=== PATIENT | male | born 1980 | race Caucasian/White ===

== ENCOUNTER 2016-08-31 12:09 | Emergency (ER) | payer MEDICAID ==
[2016-08-31 12:15] VITALS: BMI 33.7
[2016-08-31 12:16] VITALS: BP 138/75; PULSE 68; RESP 19; TEMP 98.1; O2SAT 99
--- NOTE | 2016-08-31 14:11 | ED PDOC ---
HPI: Male Pain Time Seen by Provider: 08/31/16 12:33 Chief Complaint (Nursing): Male Genitourinary Chief Complaint (Provider): dysuria History Per: Patient Additional Complaint(s): pt c/o dysuria, penile drainage x 2 days w/ associated chills. no fever, cp, sob, abd pain, n/v, testicle pain, groin lesions. pt is sexually active with one female partner, no protection used. Past Medical History Reviewed: Historical Data, Nursing Documentation, Vital Signs Vital Signs: Last Vital Signs Temp 98.1 F 08/31/16 12:29 Pulse 68 08/31/16 12:29 Resp 19 08/31/16 12:29 BP 138/75 08/31/16 12:29 Pulse Ox 99 08/31/16 12:29 - Medical History PMH: Back Problems Denies: Chronic Kidney Disease - Surgical History Surgical History: Tonsillectomy - Family History Family History: States: No Known Family Hx - Social History Current smoker - smoking cessation education provided: No Alcohol: None Drugs: Denies - Immunization History Hx Tetanus Toxoid Vaccination: No Hx Influenza Vaccination: No Hx Pneumococcal Vaccination: No - Home Medications Home Medications: Ambulatory Orders Medication Instructions Recorded Acetaminophen/Oxycodone Hydr 1 tab PO Q6H PRN #15 tab 01/27/14 [Percocet 325 mg-5 mg] Ibuprofen [Motrin Tab] 600 mg PO Q8H PRN #20 tab 01/27/14 Ciprofloxacin/Ciprofloxa HCl 500 mg PO BID #20 ter 07/17/14 [Ciprofloxacin] Ketorolac Tromethamine [Toradol] 10 mg PO Q6 PRN #19 tab 11/30/14 diaZEpam [Valium] 5 mg PO Q6H #10 tab 11/30/14 Ciprofloxacin [Cipro] 1 tab PO BID #6 tab 09/04/15 Doxycycline Hyclate 100 mg PO Q12 #14 tab 08/31/16 - Allergies Allergies/Adverse Reactions: Allergies Allergy/AdvReac Type Severity Reaction Status Date / Time Penicillins Allergy RASH Verified 09/04/15 01:30 Review of Systems ROS Statement: Except As Marked, All Systems Reviewed And Found Negative Genitourinary Male: Positive for: Dysuria Physical Exam - Reviewed Nursing Documentation Reviewed: Yes Vital Signs Reviewed: Yes - Physical Exam Appears: Positive for: Well, Non-toxic, No Acute Distress Skin: Positive for: Normal Color, Warm, DRY Cardiovascular/Chest: Positive for: Regular Rate, Rhythm Respiratory: Positive for: CNT, Normal Breath Sounds Gastrointestinal/Abdominal: Positive for: Normal Exam, Bowel Sounds, Soft. Negative for: Tenderness Male Genital Exam: Positive for: normal genitalia (uncircumcised). Negative for : inguinal tenderness, lesions, scrotum tenderness (R), scrotum tenderness (L), testicular tenderness (R), testicular tenderness (L), urethral discharge Neurologic/Psych: Positive for: Alert, Oriented - ECG O2 Sat by Pulse Oximetry: 99 Disposition - Clinical Impression Clinical Impression: Urinary tract infection - Patient ED Disposition Is Patient to be Admitted: No - Disposition Referrals: [facility] [Outside] Disposition: Routine/Home Disposition Time: 14:13 Condition: GOOD Prescriptions: Doxycycline Hyclate 100 mg PO Q12 #14 tab Instructions: Urinary Tract Infection in Men (ED)
== END 2016-08-31 14:21 | disposition home or self-care (01) ==
LOC: H.ER 12:09
DX: N39.0 Urinary tract infection, site not specified (principal); R30.0 Dysuria

== ENCOUNTER 2017-07-20 11:59 | Emergency (ER) | payer MEDICAID ==
[2017-07-20 12:11] VITALS: BP 137/90; PULSE 75; TEMP 97; O2SAT 98; BMI 34.9
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
== END 2017-07-20 13:13 | disposition home or self-care (01) ==
LOC: H.ER 11:59
DX: M54.5 Low back pain (principal); Z88.0 Allergy status to penicillin
CPT/HCPCS: 96372; 99282; J1885

== ENCOUNTER 2018-08-25 17:44 | Emergency (ER) | payer MEDICAID ==
[2018-08-25 17:44] VITALS: BMI 34.9
[2018-08-25 18:15] VITALS: BP 129/74; PULSE 91; RESP 18; TEMP 98.7; O2SAT 96
[2018-08-25] MEDS ORDERED: DiphenhydrAMINE 50 mg/ml Inj IM STA (19:06)
--- NOTE | 2018-08-25 19:09 | ED PDOC ---
HPI: Allergic Reaction Time Seen by Provider: 08/25/18 18:27 Chief Complaint (Nursing): Allergic Reaction Chief Complaint (Provider): Allergic Reaction History Per: Patient History/Exam Limitations: no limitations Onset/Duration Of Symptoms: Days (x2) Current Symptoms Are (Timing): Still Present Additional Complaint(s): Patient is a 38 y/o male with no significant PMHx who presents to the ED for evaluation of an allergic reaction for the past two days. Patient states it developed after having a salmon and avocado roll but is unsure as to what exactly caused the reaction. Patient reports an itchy rash all over his body. Patient denies throat pain and shortness of breath. Patient has not taken any medication for relief. Of note, patient is allergic to Penicillin. PCP: None Provided Past Medical History Reviewed: Historical Data, Nursing Documentation, Vital Signs Vital Signs: Last Vital Signs Temp 98.7 F 08/25/18 18:13 Pulse 91 H 08/25/18 18:13 Resp 18 08/25/18 18:13 BP 129/74 08/25/18 18:13 Pulse Ox 96 08/25/18 18:13 - Medical History PMH: Back Problems Denies: Chronic Kidney Disease - Surgical History Surgical History: Tonsillectomy - Family History Family History: States: Unknown Family Hx - Immunization History Hx Tetanus Toxoid Vaccination: No Hx Influenza Vaccination: No Hx Pneumococcal Vaccination: No - Home Medications Home Medications: Ambulatory Orders Medication Instructions Recorded Acetaminophen/Oxycodone Hydr 1 tab PO Q6H PRN #15 tab 01/27/14 [Percocet 325 mg-5 mg] Ibuprofen [Motrin Tab] 600 mg PO Q8H PRN #20 tab 01/27/14 Ciprofloxacin/Ciprofloxa HCl 500 mg PO BID #20 ter 07/17/14 [Ciprofloxacin] Ketorolac Tromethamine [Toradol] 10 mg PO Q6 PRN #19 tab 11/30/14 diaZEpam [Valium] 5 mg PO Q6H #10 tab 11/30/14 Ciprofloxacin [Cipro] 1 tab PO BID #6 tab 09/04/15 Doxycycline Hyclate 100 mg PO Q12 #14 tab 08/31/16 Cyclobenzaprine [Cyclobenzaprine 10 mg PO Q8H PRN #12 tab 07/20/17 HCl] Ibuprofen [Motrin Tab] 800 mg PO Q6H PRN #20 tab 07/20/17 oxyCODONE/Acetaminophen [Percocet 1 ea PO Q6H PRN #5 tab 07/20/17 5/325 mg Tab] - Allergies Allergies/Adverse Reactions: Allergies Allergy/AdvReac Type Severity Reaction Status Date / Time Penicillins Allergy RASH Verified 09/04/15 01:30 Review of Systems ROS Statement: Except As Marked, All Systems Reviewed And Found Negative ENT: Negative for: Throat Pain Respiratory: Negative for: Shortness of Breath Skin: Positive for: Rash (all over body; red and itchy) Physical Exam - Reviewed Nursing Documentation Reviewed: Yes Vital Signs Reviewed: Yes - Physical Exam Appears: Positive for: No Acute Distress Head Exam: Positive for: ATRAUMATIC, NORMAL INSPECTION, NORMOCEPHALIC (with no angioedema) Skin: Positive for: Rash (maculopapular) Eye Exam: Positive for: Normal appearance, EOMI, PERRL. Negative for: Other (edema to eyes) ENT: Positive for: Normal ENT Inspection, Pharynx Is (clear), Other (tongue not swollen). Negative for: Pharyngeal Erythema, Tonsillar Exudate, Tonsillar Swelling Neck: Positive for: Normal, Painless ROM, Supple Cardiovascular/Chest: Positive for: Regular Rate, Rhythm. Negative for: Murmur Respiratory: Positive for: Normal Breath Sounds (airway patent). Negative for: Respiratory Distress Gastrointestinal/Abdominal: Positive for: Normal Exam, Soft. Negative for: Tenderness Back: Positive for: Normal Inspection. Negative for: L CVA Tenderness, R CVA Tenderness, Vertebral Tenderness Extremity: Positive for: Normal ROM. Negative for: Pedal Edema, Deformity Neurological/Psych: Positive for: Alert, Oriented (x3) - ECG O2 Sat by Pulse Oximetry: 96 (RA) Pulse Ox Interpretation: Normal Disposition - Clinical Impression Clinical Impression: Allergic reaction - Patient ED Disposition Is Patient to be Admitted: No Doctor Will See Patient In The: Office Counseled Patient/Family Regarding: Diagnosis, Need For Followup, Rx Given - Disposition Referrals: [facility] [Outside] Arthur Knox DO [Medical Doctor] - Rosemary Jaimes PA [Physician Retail Analyst] - Disposition: Routine/Home Disposition Time: 19:30 Condition: STABLE Instructions: Allergy Skin Testing Forms: [employer] (Yakut) Medical Decision Making Medical Decision Making: Time: 1905 Impression: maculopapular rash to trunk and upper/lower extremities Plan: Benadryl 50 mg IM Decadron 10 mg IM On reevaluation, patient is stable and rash has dissipated. Pruritis has dissipated The patient will be discharged Patient will be given referral to clinic. Patient advised to followup with an casino porter. Scribe Attestation: Documented by Gomez Perry, acting as a scribe Daniel Muniz PA-C Provider Scribe Attestation: All medical record entries made by the Scribe were at my direction and personally dictated by me. I have reviewed the chart and agree that the record accurately reflects my personal performance of the history, physical exam, medical decision making, and the department course for this patient. I have also personally directed, reviewed, and agree with the discharge instructions and disposition.
[2018-08-25] MEDS ORDERED: DiphenhydrAMINE 50 mg/ml Inj ONE (19:20)
== END 2018-08-25 19:50 | disposition home or self-care (01) ==
LOC: H.ER 17:44
DX: T78.40XA Allergy, unspecified, initial encounter (principal); Z88.0 Allergy status to penicillin
CPT/HCPCS: 96372; 99283; J1100; J1200